=== PATIENT | female | born 1950 | race Caucasian/White ===

== ENCOUNTER 2021-04-17 02:40 | Day surgery (SDC) | payer MEDICARE, BC, SELFPAY ==
[2021-04-08 12:24] VITALS: BMI 35.9
[2021-04-17 09:21] VITALS: BP 127/78; PULSE 106; RESP 18; TEMP 35.9; O2SAT 95; BMI 35.5
[2021-04-17] MEDS: LACTATED RINGERS 1,000 ML 150 ML IV CONT (09:28)
--- NOTE | 2021-04-17 09:41 | WPDANESEPPF ---
Anes - Initial Pre Proc Eval Procedure: Operation Date: 04/17/21 10:00 Proposed Procedures p Colonoscopy - Lazaro Arriola MD Date/Time: 04/17/21 09:41 Surgeon: Lazaro Arriola MD Pre Op Diagnosis: positive cologuard Patient Data Age: 70 Gender: F Height: 1.7 m Weight: 103 kg Last Vital Signs Temp 96.7 F L 04/17/21 09:21 Pulse 106 H 04/17/21 09:21 Resp 18 04/17/21 09:21 BP 127/78 04/17/21 09:21 Pulse Ox 95 04/17/21 09:21 Allergies Allergy/AdvReac Type Severity Reaction Status Date / Time No Known Allergies Allergy Verified 04/17/21 09:20 Home Medications Medication Instructions Recorded Confirmed Type amlodipine 5 mg PO DAILY 04/08/21 04/08/21 History volmoci-widmclyzozyfb-ciijsibj 1 tablet PO DAILY PRN 04/08/21 04/08/21 History [Excedrin Extra Strength] lisinopril 40 mg PO DAILY 04/08/21 04/08/21 History Patient hx anesthesia problems: none Family hx anesthesia problems: none PMFSH Past Medical History Medical History (Updated 04/17/21 @ 09:39 by Babar Ceballos MD) Hypertension Family History Family History (Updated 03/12/16 @ 23:19 by DOCTOR UNKNOWN) Mother Family history of malignant neoplasm of breast in first degree relative Social History Social History Smoking status: Never smoker Second hand tobacco smoke exposure: No Alcohol intake: never Substance use: never Substance use type: does not use Living arrangements: with family Spiritual care concerns: No Anes - Eval Final PreProcedure Day of Procedure 04/17/21 09:41 Patient weight: obese Heart: regular rate and rhythm Lungs: clear to auscultation Airway: Mallampati scale class III Neurological: alert and oriented Last oral intake: >/= 8 hours ASA classification: III Emergent: no Anesthetic plan: proceed Anesthesia type and monitoring: general GIVS and standard monitoring Informed Consent: The patient's anesthetic plan and its attendant risks and benefits were discussed with the patient/family/POA. Questions were solicited and answers provided to the satisfaction of the patient/family/POA.
--- NOTE | 2021-04-17 10:00 | PM.HPGS ---
History of Present Illness History of Present Illness Consent: Risks, benefits, and alternatives have been discussed and questions answered. Patient agrees to proceed with procedure. Chief complaint: positive cologuard Narrative: Nano Arvizu is a 70 year old female here for first colonoscopy, had + cologuard Review of Systems Constitutional: Constitutional: Denies headache(s) and Denies weakness Eyes: Eyes: Denies blurry vision ENT: Reports Normal hearing present, Denies headache(s) and Denies neck pain Cardiovascular: Cardiovascular: Denies chest pain and Denies dyspnea Respiratory: Respiratory: Denies dyspnea Gastrointestinal: Gastrointestinal: Reports no additional gastrointestinal complaints Genitourinary: Genitourinary: Denies dysuria Musculoskeletal: Musculoskeletal: Denies neck pain Integumentary/Breasts: Skin/Breast: Denies dry skin Neurologic: Reports Normal hearing present, Denies headache(s) and Denies weakness Psychiatric: Psychiatric: Denies anxiety Endocrine: Endocrine: Denies change in body appearance Hematologic/Lymphatic: Hematologic/Lymphatic: Denies easy bleeding Allergic/Immunologic: Allergic/Immunologic: Denies urticaria PMFSH Past Medical History Medical History (Updated 04/17/21 @ 10:01 by Lazaro Arriola MD) Colon cancer screening Hypertension Positive colorectal cancer screening using Cologuard test Family History Family History (Updated 03/12/16 @ 23:19 by DOCTOR UNKNOWN) Mother Family history of malignant neoplasm of breast in first degree relative Social History Social History Smoking status: Never smoker Second hand tobacco smoke exposure: No Alcohol intake: never Substance use: never Substance use type: does not use Living arrangements: with family Spiritual care concerns: No Meds Home Medications and Allergies Home Medications Medication Instructions Recorded Confirmed Type amlodipine 5 mg PO DAILY 04/08/21 04/08/21 History wbtmxux-cpkxosrytznom-mvsiutnq 1 tablet PO DAILY PRN 04/08/21 04/08/21 History [Excedrin Extra Strength] lisinopril 40 mg PO DAILY 04/08/21 04/08/21 History Allergies Allergy/AdvReac Type Severity Reaction Status Date / Time No Known Allergies Allergy Verified 04/17/21 09:20 Vital Signs Vital Signs - 24 hr 04/17/21 09:21 Temperature 96.7 F L Pulse Rate 106 H Respiratory Rate 18 Blood Pressure 127/78 Pulse Oximetry 95 Exam Const: General: comfortable and no acute distress HENMT: General nose exam: Normal nares present Eyes: General: appearance normal, both eyes and all related structures Neck: Neck: no JVD Resp: Auscultation: clear to auscultation bilaterally Cardio: Rate: regular rate Rhythm: regular rhythm GI: Inspection: non-distended GI Palp: Yes Soft to palpation Skin: General skin exam: normal color Neuro: General: gait normal Speech: normal speech Extrem: General: normal to inspection Psych: Mental Status: mental status grossly normal Assessment and Plan Assessment and plan (1) Colon cancer screening: Code(s): Z12.11 - Encounter for screening for malignant neoplasm of colon Status: Acute (2) Positive colorectal cancer screening using Cologuard test: Code(s): R19.5 - Other fecal abnormalities Status: Acute Assessment and Plan: colonoscopy
[2021-04-17 10:29] VITALS: BP 96/63; PULSE 102; RESP 18; O2SAT 96
[2021-04-17 10:39] VITALS: BP 107/68; PULSE 88; RESP 22; O2SAT 97
[2021-04-17 10:48] VITALS: BP 124/75; PULSE 81; RESP 18; O2SAT 98
== END 2021-04-17 11:05 | disposition home or self-care (01) ==
PROVIDERS: PCP Physician Assistant; Visit Provider Internal Medicine Gastroenterology
PROC: 0DJD8ZZ Inspection of Lower Intestinal Tract, Via Natural or Artificial Opening Endoscopic (ICD-10-PCS; CPT 45378; principal; 2021-04-17 10:00)
DX: R19.5 Other fecal abnormalities (principal); D12.3 Benign neoplasm of transverse colon; D12.0 Benign neoplasm of cecum; K57.30 Diverticulosis of large intestine without perforation or abscess without bleeding; K64.8 Other hemorrhoids; I10 Essential (primary) hypertension
CPT/HCPCS: 45385; 88305; J2704; J7120